=== PATIENT | male | born 1955 | race Caucasian/White ===

== ENCOUNTER 2016-06-23 03:23 | Inpatient (IN) | payer MEDICARE ==
[~2016-06-23] VITALS: Ht 188 cm; Wt 115.0 kg
[~2016-06-23 03:23] MED LIST: AMOX1TAB61 PO; FENO43CA3 PO; GABA800T2 PO; GLIM1TAB2 PO; INSU100C SQ-INSULIN; INSU100V8 SQ; LORA1TAB PO; OXYC15TA PO; OXYC20TA42 PO; OXYC5CAP4 PO; QUET300T5 PO; SIMV10TA3 PO; TRAM50TA2 PO; TRAZ100T15 PO; ZOLP-413 PO
[2016-06-23] MEDS ORDERED: ONDANSETRON 2MG/ML, 2ML ONE (04:15)
[2016-06-23] MEDS ORDERED: SODIUM CHLORIDE 0.9% 1,000ML IVBOLUS ONE (04:30)
[2016-06-23] MEDS ORDERED: ONDANSETRON 2MG/ML, 2ML IVPush ONE (04:30)
[2016-06-23] MEDS ORDERED: SODIUM CHLORIDE FLUSH 10ML SYR IVF ONE (04:30)
[2016-06-23] MEDS ORDERED: LORazepam 2 MG/ML, 1ML ONE ×2 (05:09→06:44)
[2016-06-23 05:21] LABS: BLOOD UREA NITROGEN 20 mg/dL (7-18)
[2016-06-23 05:29] LABS: ASPARTATE AMINO TRANSFERASE 14 U/L (15-37)
[2016-06-23 05:30] LABS: ACETAMINOPHEN < 2 mcg/mL (10-30)
[2016-06-23] MEDS ORDERED: LORazepam 2 MG/ML, 1ML IVPush ONE ×2 (05:30→06:30)
[2016-06-23] MEDS ORDERED: ZIPRASIDONE 20 MG INJ IM ONE ×2 (05:54→06:00)
[2016-06-23 06:03] LABS: DAU SCREEN DISCLAIMER
[2016-06-23 06:29] LABS: PATH.CAST-FLAG NOT PRESENT; SPERM-FLAG NOT PRESENT; SRC-FLAG NOT PRESENT; XTAL-FLAG NOT PRESENT; YLC-FLAG NOT PRESENT
[2016-06-23] MEDS ORDERED: OMNIPAQUE 350 MG/ML, 100ML BOTTLE ONE (07:03)
[2016-06-23] MEDS ORDERED: CEFTRIAXONE PMX 1GM/50ML 50 ML IV ONE (07:30)
[2016-06-23] MEDS ORDERED: CEFTRIAXONE PMX 1GM/50ML 50 ML ONE (07:37)
[2016-06-23 09:35] VITALS: BP 133/77
[2016-06-23] MEDS ORDERED: ACETAMINOPHEN 325 MG TABLET PO PRN (11:00)
[2016-06-23] MEDS ORDERED: DOCUSATE 100 MG CAPSULE PO PRN (11:00)
[2016-06-23] MEDS ORDERED: LABETALOL 5MG/ML, 20ML IV PRN (11:00)
[2016-06-23] MEDS ORDERED: ONDANSETRON 2MG/ML, 2ML IVP PRN (11:00)
[2016-06-23] MEDS ORDERED: GUAIFENESIN/DM 200-20MG, 10ML UDC PO PRN (11:00)
[2016-06-23 11:10] VITALS: BP 133/77
[2016-06-23] MEDS: ENOXAPARIN 40 MG/0.4 ML SQ SCH (11:31)
[2016-06-23] MEDS: GABAPENTIN 400 MG CAPSULE PO SCH ×3 (11:31→21:02)
[2016-06-23] MEDS: HYDROcodone/APAP 5/325 TABLET PO PRN (11:32)
[2016-06-23] MEDS: SODIUM CHLORIDE 0.9% 1,000 ML IV SCH ×2 (11:41→21:03)
[2016-06-23] MEDS ORDERED: QUET1TAB PO (12:10)
[2016-06-23 12:44] VITALS: BP 133/81
[2016-06-23] MEDS: QUETIAPINE 100MG TABLET PO SCH ×2 (15:04→21:02)
[2016-06-23] MEDS: ALPRazolam 1MG TABLET PO PRN (15:53)
[2016-06-23] MEDS ORDERED: INSULIN DETEMIR 100 UNITS/ML, PEN SQ-INSULIN SCH (17:00)
[2016-06-23] MEDS: INSULIN ASPART 100 UNITS/ML, PEN SQ-INSULIN SCH ×2 (18:01→21:02)
[2016-06-23] MEDS: OxyconTIN ER 20 MG TAB.ER PO SCH (21:10)
[2016-06-23 21:15] VITALS: BP 100/63
[2016-06-24 03:57] VITALS: BP 106/72
[2016-06-24] MEDS: HYDROcodone/APAP 5/325 TABLET PO PRN ×3 (04:46→16:45)
[2016-06-24] MEDS: QUETIAPINE 100MG TABLET PO SCH ×4 (05:02→22:07)
[2016-06-24] MEDS: GABAPENTIN 400 MG CAPSULE PO SCH ×4 (05:02→22:07)
[2016-06-24 05:33] VITALS: BP 128/56
[2016-06-24] MEDS: ALPRazolam 1MG TABLET PO PRN ×2 (05:36→16:45)
[2016-06-24 05:54] LABS: HEMOGLOBIN 12.8 g/dL (13.7-18.0)
[2016-06-24 06:18] LABS: BLOOD UREA NITROGEN 17 mg/dL (7-18)
[2016-06-24 08:18] VITALS: BP 115/70
[2016-06-24] MEDS: INSULIN ASPART 100 UNITS/ML, PEN SQ-INSULIN SCH ×4 (10:18→22:06)
[2016-06-24] MEDS: OxyconTIN ER 20 MG TAB.ER PO SCH ×2 (10:34→22:06)
[2016-06-24] MEDS: CEFTRIAXONE PMX 2GM/50ML 50 ML IV SCH (11:50)
[2016-06-24] MEDS: ENOXAPARIN 40 MG/0.4 ML SQ SCH (11:51)
[2016-06-24 14:00] VITALS: BP 118/75
[2016-06-24] MEDS: INSULIN DETEMIR 100 UNITS/ML, PEN SQ-INSULIN SCH (16:40)
[2016-06-24] MEDS ORDERED: INSULIN DETEMIR 100 UNITS/ML, PEN SQ-INSULIN SCH (17:00)
[2016-06-24 20:12] VITALS: BP 137/72
[2016-06-25] MEDS: ALPRazolam 1MG TABLET PO PRN ×2 (00:21→10:57)
[2016-06-25 00:23] VITALS: BP 159/70
[2016-06-25] MEDS: HYDROcodone/APAP 5/325 TABLET PO PRN (04:43)
[2016-06-25 05:20] LABS: HEMOGLOBIN 12.2 g/dL (13.7-18.0)
[2016-06-25 05:32] LABS: BLOOD UREA NITROGEN 16 mg/dL (7-18)
[2016-06-25] MEDS: GABAPENTIN 400 MG CAPSULE PO SCH ×4 (05:45→20:33)
[2016-06-25] MEDS: QUETIAPINE 100MG TABLET PO SCH ×4 (05:46→20:33)
[2016-06-25 07:43] VITALS: BP 111/70
[2016-06-25] MEDS: INSULIN ASPART 100 UNITS/ML, PEN SQ-INSULIN SCH ×4 (08:52→20:37)
[2016-06-25] MEDS: OxyconTIN ER 20 MG TAB.ER PO SCH ×2 (09:20→20:32)
[2016-06-25] MEDS: ENOXAPARIN 40 MG/0.4 ML SQ SCH (10:59)
[2016-06-25] MEDS: CEFTRIAXONE PMX 2GM/50ML 50 ML IV SCH (11:33)
[2016-06-25 13:25] VITALS: BP 135/76
[2016-06-25] MEDS: INSULIN DETEMIR 100 UNITS/ML, PEN SQ-INSULIN SCH (15:50)
[2016-06-25 19:06] VITALS: BP 146/84
[2016-06-26 02:37] VITALS: BP 124/74
[2016-06-26] MEDS: QUETIAPINE 100MG TABLET PO SCH ×2 (05:48→11:34)
[2016-06-26] MEDS: GABAPENTIN 400 MG CAPSULE PO SCH ×2 (05:49→11:34)
[2016-06-26 07:30] VITALS: BP 156/81
[2016-06-26] MEDS: INSULIN ASPART 100 UNITS/ML, PEN SQ-INSULIN SCH ×2 (08:07→11:33)
[2016-06-26] MEDS: OxyconTIN ER 20 MG TAB.ER PO SCH (08:07)
[2016-06-26] MEDS: ENOXAPARIN 40 MG/0.4 ML SQ SCH (11:33)
[2016-06-26] MEDS: CEFTRIAXONE PMX 2GM/50ML 50 ML IV SCH (11:33)
[2016-06-26] MEDS: HYDROcodone/APAP 5/325 TABLET PO PRN (11:41)
[2016-06-26] MEDS: ALPRazolam 1MG TABLET PO PRN (11:42)
[2016-06-26] MEDS ORDERED: LEVO500T33 PO (13:07)
[2016-06-26 14:00] VITALS: BP 153/78
== END 2016-06-26 16:05 | DRG 690 ==
LOC: ED 03:40 → EDIP 07:31 → 4EST 09:24 → 3NE 06-24 13:10
PROVIDERS: ADMIT Hospitalist; ATTEND Hospitalist
PROC: 0T9B70Z Drainage of Bladder with Drainage Device, Via Natural or Artificial Opening (ICD-10-PCS; principal; 2016-06-23)
DX: N39.0 Urinary tract infection, site not specified (principal); K92.2 Gastrointestinal hemorrhage, unspecified; E11.42 Type 2 diabetes mellitus with diabetic polyneuropathy; E78.5 Hyperlipidemia, unspecified; F31.9 Bipolar disorder, unspecified; F41.0 Panic disorder [episodic paroxysmal anxiety]; F41.1 Generalized anxiety disorder; I10 Essential (primary) hypertension; R09.02 Hypoxemia; G89.29 Other chronic pain; F10.10 Alcohol abuse, uncomplicated; N20.0 Calculus of kidney; Z79.4 Long term (current) use of insulin; Z86.711 Personal history of pulmonary embolism; Z86.718 Personal history of other venous thrombosis and embolism; Z90.89 Acquired absence of other organs; N10 Acute pyelonephritis; Z80.1 Family history of malignant neoplasm of trachea, bronchus and lung; E66.9 Obesity, unspecified; Z68.32 Body mass index [BMI] 32.0-32.9, adult; R41.82 Altered mental status, unspecified; T43.205A Adverse effect of unspecified antidepressants, initial encounter; T43.505A Adverse effect of unspecified antipsychotics and neuroleptics, initial encounter
CPT/HCPCS: 36415; 74177; 80048; 80053; 80307; 80329; 81001; 82140; 82550; 82962; 83605; 83690; 83735; 84145; 84443; 85025; 87040; 87086; 93005; 96365; 96375; 96376; J0696; J1650; J1815; J2405; J3486; Q9967; G0480; J2060; J7030

== ENCOUNTER 2016-07-23 16:07 | Emergency (ER) | payer MEDICARE ==
[~2016-07-23] VITALS: Ht 180.3 cm; Wt 104.2 kg
[~2016-07-23 16:07] MED LIST changes: +LEVO500T33 PO; +QUET1TAB PO
[2016-07-23] MEDS ORDERED: ONDANSETRON ODT 8 MG ONE (17:55)
[2016-07-23 17:58] VITALS: BP 159/83
[2016-07-23] MEDS ORDERED: ONDANSETRON ODT 8 MG PO ONE (18:00)
== END 2016-07-23 18:00 | disposition home or self-care (01) ==
LOC: ED 16:30
DX: R11.2 Nausea with vomiting, unspecified (principal); E11.9 Type 2 diabetes mellitus without complications
CPT/HCPCS: 70360; 71010; 99284; Q0162

== ENCOUNTER 2016-12-08 03:18 | Emergency (ER) | payer MEDICARE ==
[~2016-12-08] VITALS: Ht 188 cm; Wt 113.3 kg
[~2016-12-08 03:18] MED LIST changes: -LEVO500T33 PO; +LEVO500T47 PO; +OXYC5CAP2 PO; -OXYC5CAP4 PO
[2016-12-08 03:27] VITALS: BP 125/77
== END 2016-12-08 04:38 | disposition left against medical advice (07) ==
LOC: ED 04:32
DX: Z53.21 Procedure and treatment not carried out due to patient leaving prior to being seen by health care provider (principal)

== ENCOUNTER 2016-12-17 21:40 | Emergency (ER) | payer MEDICARE ==
[~2016-12-17] VITALS: Ht 188 cm; Wt 105.0 kg
[2016-12-17 21:46] VITALS: BP 158/78
[2016-12-17] MEDS ORDERED: FENO48TA16 PO (21:50)
== END 2016-12-17 21:59 | disposition home or self-care (01) ==
LOC: ED 21:50
DX: Z76.0 Encounter for issue of repeat prescription (principal); E11.9 Type 2 diabetes mellitus without complications; F31.9 Bipolar disorder, unspecified; F41.9 Anxiety disorder, unspecified; G89.29 Other chronic pain; J45.909 Unspecified asthma, uncomplicated; I25.10 Atherosclerotic heart disease of native coronary artery without angina pectoris; I11.0 Hypertensive heart disease with heart failure; I50.9 Heart failure, unspecified
CPT/HCPCS: 99283

== ENCOUNTER 2017-02-24 22:10 | Emergency (ER) | payer MEDICARE ==
[~2017-02-24] VITALS: Ht 188 cm; Wt 118.4 kg
[~2017-02-24 22:10] MED LIST changes: +FENO48TA16 PO
[2017-02-24 22:13] VITALS: BP 133/78
== END 2017-02-24 23:56 | disposition home or self-care (01) ==
LOC: ED 23:40
DX: Z76.0 Encounter for issue of repeat prescription (principal); G47.00 Insomnia, unspecified; I11.0 Hypertensive heart disease with heart failure; I50.9 Heart failure, unspecified; J45.909 Unspecified asthma, uncomplicated; I25.10 Atherosclerotic heart disease of native coronary artery without angina pectoris; Z86.711 Personal history of pulmonary embolism
CPT/HCPCS: 99283

== ENCOUNTER 2017-04-07 07:32 | Emergency (ER) | payer MEDICARE ==
[~2017-04-07] VITALS: Ht 188 cm; Wt 117.3 kg
[2017-04-07 07:35] VITALS: BP 161/81
[2017-04-07 08:56] LABS: MICROSCOPIC INDICATED
[2017-04-07 09:19] LABS: CULTURE INDICATED? YES
== END 2017-04-07 08:53 | disposition left against medical advice (07) ==
LOC: ED 08:05
DX: R33.9 Retention of urine, unspecified (principal); N40.0 Benign prostatic hyperplasia without lower urinary tract symptoms; E11.9 Type 2 diabetes mellitus without complications; I11.0 Hypertensive heart disease with heart failure; I50.9 Heart failure, unspecified; I25.10 Atherosclerotic heart disease of native coronary artery without angina pectoris; Z86.711 Personal history of pulmonary embolism; J45.909 Unspecified asthma, uncomplicated
CPT/HCPCS: 81001; 87077; 87086; 87186; 99284

== ENCOUNTER 2017-08-09 03:18 | Emergency (ER) | payer MEDICARE ==
[~2017-08-09] VITALS: Ht 188 cm; Wt 116.8 kg
[2017-08-09 03:20] VITALS: BP 167/91
== END 2017-08-09 04:07 | disposition left against medical advice (07) ==
LOC: ED 03:38
DX: F41.1 Generalized anxiety disorder (principal); F20.9 Schizophrenia, unspecified; F31.9 Bipolar disorder, unspecified; I25.10 Atherosclerotic heart disease of native coronary artery without angina pectoris; E11.9 Type 2 diabetes mellitus without complications
CPT/HCPCS: 99284

== ENCOUNTER 2017-08-09 13:35 | Emergency (ER) | payer MEDICARE ==
[~2017-08-09] VITALS: Ht 188 cm; Wt 115.0 kg
[2017-08-09 13:38] VITALS: BP 170/94
== END 2017-08-09 15:34 | disposition left against medical advice (07) ==
LOC: ED 15:28
DX: R10.9 Unspecified abdominal pain (principal); Z53.21 Procedure and treatment not carried out due to patient leaving prior to being seen by health care provider

== ENCOUNTER 2017-08-31 22:37 | Emergency (ER) | payer MEDICARE ==
[~2017-08-31] VITALS: Ht 188 cm; Wt 118.0 kg
[2017-08-31] MEDS ORDERED: MAALOX/HYOSCYAMINE/LIDOCAINE 45 ML BTL ONE (22:59)
[2017-08-31] MEDS ORDERED: MAALOX/HYOSCYAMINE/LIDOCAINE 45 ML BTL PO ONE (23:00)
[2017-08-31 23:25] VITALS: BP 178/88
== END 2017-09-01 00:03 | disposition left against medical advice (07) ==
LOC: ED 23:02
DX: Z53.21 Procedure and treatment not carried out due to patient leaving prior to being seen by health care provider (principal); R10.30 Lower abdominal pain, unspecified
CPT/HCPCS: 93005

== ENCOUNTER 2017-09-13 02:50 | Emergency (ER) | payer MEDICARE ==
[~2017-09-13] VITALS: Ht 188 cm; Wt 110.0 kg
[2017-09-13 02:53] VITALS: BP 150/82
[2017-09-13] MEDS ORDERED: ZIPRASIDONE 20 MG INJ IM ONE ×2 (03:25→03:30)
[2017-09-13 03:29] LABS: BASOPHILS # (AUTO) 0.02 x10^3/uL (0-0.1); BASOPHILS % (AUTO) 0 % (0-1); EOSINOPHILS # (AUTO) 0.03 x10^3/uL (0-0.4); EOSINOPHILS % (AUTO) 0 % (1-7); LYMPHOCYTES # (AUTO) 1.18 x10^3/uL (1-3.4); LYMPHOCYTES % (AUTO) 18 % (22-44); MD NO; MEAN CORPUSCULAR HEMOGLOBIN 31.7 pg (27.5-34.5); MEAN CORPUSCULAR HGB CONC 34.2 g/dL (33.2-36.2); MEAN CORPUSCULAR VOLUME 92.8 fL (81-97); MEAN PLATELET VOLUME 7.7 fL (7.4-10.4); MONOCYTES # (AUTO) 0.45 x10^3/uL (0.2-0.8); MONOCYTES % (AUTO) 7 % (2-9); NEUTROPHILS # (AUTO) 4.83 x10^3/uL (1.8-6.8); NEUTROPHILS % (AUTO) 74 % (42-75); PLATELET COUNT 243 x10^3/uL (130-400); RED BLOOD COUNT 4.94 x10^6/uL (4.38-5.82); RED CELL DISTRIBUTION WIDTH 13.8 % (9.4-14.8)
[2017-09-13] MEDS ORDERED: MAALOX/HYOSCYAMINE/LIDOCAINE 45 ML BTL ONE (03:33)
[2017-09-13 03:40] LABS: ANION GAP 12 mmol/L (5-15); CALCIUM 9.5 mg/dL (8.5-10.1); CHLORIDE 97 mmol/L (98-107); CREATININE 1.16 mg/dL (0.7-1.3)
[2017-09-13 03:41] LABS: ALANINE AMINOTRANSFERASE 59 U/L (12-78); ALBUMIN 3.3 g/dL (3.4-5.0); SALICYLATE LEVEL 1.8 mg/dL (2.8-20.0)
[2017-09-13 03:44] LABS: ALKALINE PHOSPHATASE 176 U/L (45-117); BILIRUBIN,TOTAL 0.2 mg/dL (0.2-1.0); TOTAL PROTEIN 7.2 g/dL (6.4-8.2)
[2017-09-13 03:45] LABS: ACETAMINOPHEN < 2 mcg/mL (10-30)
[2017-09-13] MEDS ORDERED: MAALOX/HYOSCYAMINE/LIDOCAINE 45 ML BTL PO ONE (04:00)
[2017-09-13] MEDS ORDERED: SODIUM CHLORIDE FLUSH 10ML SYR IVF ONE (04:30)
[2017-09-13] MEDS ORDERED: SODIUM CHLORIDE 0.9% 1,000ML IVBOLUS ONE (04:30)
== END 2017-09-13 06:18 | disposition home or self-care (01) ==
LOC: ED 03:09
DX: R10.84 Generalized abdominal pain (principal); R45.851 Suicidal ideations; E11.65 Type 2 diabetes mellitus with hyperglycemia; E11.40 Type 2 diabetes mellitus with diabetic neuropathy, unspecified; I50.9 Heart failure, unspecified; I25.10 Atherosclerotic heart disease of native coronary artery without angina pectoris; F31.9 Bipolar disorder, unspecified; Z86.711 Personal history of pulmonary embolism; Z91.19 Patient's noncompliance with other medical treatment and regimen
CPT/HCPCS: 36415; 80053; 80307; 80329; 83690; 85025; 93005; 96360; 96372; 99285; J3486; J7030; G0480

== ENCOUNTER 2017-10-08 21:38 | Emergency (ER) | payer MEDICARE ==
[~2017-10-08] VITALS: Ht 185.4 cm; Wt 106.8 kg
[2017-10-08 22:29] LABS: BASOPHILS # (AUTO) 0.01 x10^3/uL (0-0.1); BASOPHILS % (AUTO) 0 % (0-1); EOSINOPHILS # (AUTO) 0.03 x10^3/uL (0-0.4); EOSINOPHILS % (AUTO) 1 % (1-7); LYMPHOCYTES # (AUTO) 1.03 x10^3/uL (1-3.4); LYMPHOCYTES % (AUTO) 16 % (22-44); MD NO; MEAN CORPUSCULAR HEMOGLOBIN 31.1 pg (27.5-34.5); MEAN CORPUSCULAR HGB CONC 33.5 g/dL (33.2-36.2); MEAN CORPUSCULAR VOLUME 92.7 fL (81-97); MEAN PLATELET VOLUME 8.7 fL (7.4-10.4); MONOCYTES # (AUTO) 0.68 x10^3/uL (0.2-0.8); MONOCYTES % (AUTO) 11 % (2-9); NEUTROPHILS # (AUTO) 4.61 x10^3/uL (1.8-6.8); NEUTROPHILS % (AUTO) 73 % (42-75); PLATELET COUNT 204 x10^3/uL (130-400); RED BLOOD COUNT 4.59 x10^6/uL (4.38-5.82); RED CELL DISTRIBUTION WIDTH 13.8 % (9.4-14.8)
[2017-10-08 22:39] LABS: ALANINE AMINOTRANSFERASE 237 U/L (12-78); ALBUMIN 3.2 g/dL (3.4-5.0); ANION GAP 11 mmol/L (5-15); CALCIUM 9.2 mg/dL (8.5-10.1); CHLORIDE 99 mmol/L (98-107); CREATININE 0.95 mg/dL (0.7-1.3)
[2017-10-08 22:41] LABS: SALICYLATE LEVEL < 1.7 mg/dL (2.8-20.0)
[2017-10-08 22:42] LABS: ACETAMINOPHEN 20 mcg/mL (10-30); ALKALINE PHOSPHATASE 208 U/L (45-117); BILIRUBIN,TOTAL 0.4 mg/dL (0.2-1.0)
[2017-10-08 22:56] VITALS: BP 146/78
[2017-10-08] MEDS ORDERED: MAALOX/HYOSCYAMINE/LIDOCAINE 45 ML BTL ONE (23:10)
[2017-10-08] MEDS ORDERED: MAALOX/HYOSCYAMINE/LIDOCAINE 45 ML BTL PO ONE (23:30)
== END 2017-10-08 23:14 | disposition home or self-care (01) ==
LOC: ED 21:53
DX: F15.10 Other stimulant abuse, uncomplicated (principal); F11.10 Opioid abuse, uncomplicated; Z72.9 Problem related to lifestyle, unspecified; Z60.9 Problem related to social environment, unspecified; Z79.899 Other long term (current) drug therapy
CPT/HCPCS: 36415; 70450; 71045; 80053; 80307; 80329; 82140; 85025; 93005; 99285; G0480

== ENCOUNTER 2017-10-11 14:15 | Inpatient (IN) | payer MEDICARE ==
[~2017-10-11] VITALS: Ht 185.4 cm; Wt 120.0 kg
[2017-10-11] MEDS ORDERED: SODIUM CHLORIDE FLUSH 10ML SYR IVF ONE (14:30)
[2017-10-11] MEDS ORDERED: SODIUM CHLORIDE 0.9% 1,000ML IVBOLUS ONE ×2 (14:30→15:30)
[2017-10-11] MEDS ORDERED: MORPHINE SULFATE 4 MG/ML, 1ML ONE ×2 (14:52→15:07)
[2017-10-11] MEDS ORDERED: ONDANSETRON 2MG/ML, 2ML ONE (14:52)
[2017-10-11] MEDS ORDERED: LORazepam 2 MG/ML, 1ML ONE (14:53)
[2017-10-11] MEDS ORDERED: ONDANSETRON 2MG/ML, 2ML IVPush ONE (15:00)
[2017-10-11] MEDS: MORPHINE SULFATE 4 MG/ML, 1ML IVPush PRN ×2 (15:00→15:16)
[2017-10-11] MEDS: LORazepam 2 MG/ML, 1ML IVPush PRN ×2 (15:00→16:08)
[2017-10-11 15:08] LABS: ALBUMIN 3.1 g/dL (3.4-5.0); ANION GAP 18 mmol/L (5-15); CHLORIDE 89 mmol/L (98-107); CREATININE 1.35 mg/dL (0.7-1.3)
[2017-10-11 15:13] LABS: BASOPHILS # (AUTO) 0.01 x10^3/uL (0-0.1); BASOPHILS % (AUTO) 0 % (0-1); EOSINOPHILS % (AUTO) 0 % (1-7); LYMPHOCYTES # (AUTO) 1.05 x10^3/uL (1-3.4); LYMPHOCYTES % (AUTO) 7 % (22-44); MD NO; MEAN CORPUSCULAR HEMOGLOBIN 31.1 pg (27.5-34.5); MEAN CORPUSCULAR VOLUME 91.3 fL (81-97); MEAN PLATELET VOLUME 9.1 fL (7.4-10.4); MONOCYTES # (AUTO) 1.42 x10^3/uL (0.2-0.8); MONOCYTES % (AUTO) 10 % (2-9); NEUTROPHILS # (AUTO) 12.44 x10^3/uL (1.8-6.8); NEUTROPHILS % (AUTO) 83 % (42-75); PLATELET COUNT 295 x10^3/uL (130-400); RED BLOOD COUNT 3.68 x10^6/uL (4.38-5.82); RED CELL DISTRIBUTION WIDTH 13.7 % (9.4-14.8)
[2017-10-11 15:40] LABS: ACETONE, SERUM Small (20mg/dL) mg/dL (Negative)
[2017-10-11] MEDS ORDERED: HYDROmorphone 2 MG/ML, 1ML ONE (15:40)
[2017-10-11 15:46] LABS: PROTHROMBIN TIME 10.4 Seconds (9.6-11.5)
[2017-10-11 15:52] LABS: FIO2 RA %; PH, VENOUS 7.544 pH (7.320-7.420)
[2017-10-11] MEDS ORDERED: OMNIPAQUE 350 MG/ML, 100ML BOTTLE ONE (15:53)
[2017-10-11] MEDS ORDERED: HYDROmorphone 2 MG/ML, 1ML IVPush PRN (16:00)
[2017-10-11] MEDS ORDERED: SODIUM CHLORIDE 0.9% 1,000 ML IV ONE (17:20)
[2017-10-11] MEDS ORDERED: SODIUM CHLORIDE FLUSH 10ML SYR IVF PRN (17:30)
[2017-10-11] MEDS ORDERED: OXYC5CAP2 PO (18:12)
[2017-10-11 18:40] LABS: MICROSCOPIC AUTO
[2017-10-11 18:45] LABS: CULTURE INDICATED? NO
[2017-10-11] MEDS ORDERED: BISACODYL 10 MG SUPP PR PRN (19:00)
[2017-10-11] MEDS ORDERED: hydrALAzine 20 MG/ML, 1ML IVPush PRN (19:00)
[2017-10-11] MEDS ORDERED: POLYETHYLENE GLYCOL 17 GM PACKET PO PRN (19:00)
[2017-10-11] MEDS ORDERED: DOCUSATE 100 MG CAPSULE PO PRN (19:00)
[2017-10-11] MEDS ORDERED: ONDANSETRON ODT 4 MG PO PRN (19:00)
[2017-10-11] MEDS: morphine SULFATE 10 MG/ML, 1ML IVPush PRN ×4 (19:02→19:54)
[2017-10-11] MEDS: SODIUM CHLORIDE 0.9% 1,000 ML IV SCH (19:04)
[2017-10-11] MEDS: PROMETHAZINE 25 MG/ML, 1ML IM PRN (19:33)
[2017-10-11 19:43] LABS: FREE T4 (FREE THYROXINE) 1.31 ng/dL (0.76-1.46)
[2017-10-11 19:47] LABS: THYROID STIMULATING HORMONE 0.447 mIU/L (0.358-3.740)
[2017-10-11 19:56] VITALS: BP 161/78
[2017-10-11 20:10] LABS: HEMOGLOBIN A1C 10.6 % (4.2-6.3)
[2017-10-11] MEDS: INSULIN LISPRO 100 UNITS/ML, PEN SQ-INSULIN SCH (21:39)
[2017-10-11] MEDS: OXYcodone IR 5MG TABLET PO PRN (22:21)
[2017-10-11] MEDS ORDERED: QUETIAPINE 100MG TABLET PO SCH (22:30)
[2017-10-12] MEDS: ONDANSETRON 2MG/ML, 2ML IVPush PRN ×2 (00:03→20:43)
[2017-10-12] MEDS: morphine SULFATE 10 MG/ML, 1ML IVPush PRN ×6 (00:03→23:53)
[2017-10-12 00:54] VITALS: BP 115/81
[2017-10-12] MEDS: SODIUM CHLORIDE 0.9% 1,000 ML IV SCH (02:00)
[2017-10-12] MEDS ORDERED: CALCIUM CARBONATE 500 MG TAB.CHEW ONE (03:54)
[2017-10-12 04:39] LABS: BASOPHILS # (AUTO) 0.01 x10^3/uL (0-0.1); BASOPHILS % (AUTO) 0 % (0-1); EOSINOPHILS % (AUTO) 0 % (1-7); LYMPHOCYTES % (AUTO) 7 % (22-44); MD NO; MEAN CORPUSCULAR HEMOGLOBIN 30.9 pg (27.5-34.5); MEAN CORPUSCULAR HGB CONC 33.4 g/dL (33.2-36.2); MEAN CORPUSCULAR VOLUME 92.6 fL (81-97); MEAN PLATELET VOLUME 9.2 fL (7.4-10.4); MONOCYTES # (AUTO) 1.13 x10^3/uL (0.2-0.8); MONOCYTES % (AUTO) 9 % (2-9); NEUTROPHILS # (AUTO) 10.57 x10^3/uL (1.8-6.8); NEUTROPHILS % (AUTO) 84 % (42-75); PLATELET COUNT 237 x10^3/uL (130-400); RED BLOOD COUNT 3.65 x10^6/uL (4.38-5.82); RED CELL DISTRIBUTION WIDTH 13.9 % (9.4-14.8)
[2017-10-12 04:52] LABS: ALBUMIN 2.9 g/dL (3.4-5.0); ANION GAP 12 mmol/L (5-15); CALCIUM 8.1 mg/dL (8.5-10.1); CHLORIDE 95 mmol/L (98-107)
[2017-10-12 04:58] LABS: ALANINE AMINOTRANSFERASE 103 U/L (12-78); ALKALINE PHOSPHATASE 163 U/L (45-117); BILIRUBIN,TOTAL 0.9 mg/dL (0.2-1.0); CHOL/HDL RATIO 1.6; CHOLESTEROL, TOTAL 115 mg/dL (140-239); CREATININE 0.97 mg/dL (0.7-1.3); HDL CHOL % 63 % (26-37); HDL CHOLESTEROL (DIRECT) 72 mg/dL (40-60); LDL CHOLESTEROL,CALCULATED 22 mg/dL (54-169); LDL/HDL RATIO 0.3 (0.5-3.0); TOTAL PROTEIN 6.1 g/dL (6.4-8.2); TRIGLYCERIDES 107 mg/dL (50-200); VLDL CHOLESTEROL 21 mg/dL (0-25)
[2017-10-12] MEDS: PROMETHAZINE 25 MG/ML, 1ML IM PRN (05:32)
[2017-10-12] MEDS: OXYcodone IR 5MG TABLET PO PRN ×3 (07:10→22:43)
[2017-10-12] MEDS: INSULIN LISPRO 100 UNITS/ML, PEN SQ-INSULIN SCH ×4 (09:08→20:43)
[2017-10-12] MEDS: CALCIUM CARBONATE 500 MG TAB.CHEW PO PRN ×2 (09:08→20:33)
[2017-10-12 09:59] VITALS: BP 129/73
[2017-10-12] MEDS ORDERED: INSULIN GLARGINE 100 UNITS/ML, PEN SQ-INSULIN ONE (10:00)
[2017-10-12 13:31] VITALS: BP 124/59
[2017-10-12] MEDS ORDERED: INSULIN GLARGINE 100 UNITS/ML, PEN SQ-INSULIN SCH ×2 (14:30→21:00)
[2017-10-12 18:38] VITALS: BP 99/64
[2017-10-12] MEDS: DIPHENHYDRAMINE 50 MG CAPSULE PO SCH (20:32)
[2017-10-12] MEDS: QUETIAPINE 100MG TABLET PO SCH (20:33)
[2017-10-13 01:42] VITALS: BP 150/73
[2017-10-13] MEDS: ACETAMINOPHEN 325 MG TABLET PO PRN ×2 (01:52→19:53)
[2017-10-13] MEDS: morphine SULFATE 10 MG/ML, 1ML IVPush PRN ×6 (03:04→23:47)
[2017-10-13] MEDS: CALCIUM CARBONATE 500 MG TAB.CHEW PO PRN ×2 (04:08→19:12)
[2017-10-13] MEDS: OXYcodone IR 5MG TABLET PO PRN ×4 (04:08→18:29)
[2017-10-13 05:03] LABS: ALANINE AMINOTRANSFERASE 113 U/L (12-78); ALBUMIN 2.2 g/dL (3.4-5.0); ALKALINE PHOSPHATASE 398 U/L (45-117); ANION GAP 8 mmol/L (5-15); BILIRUBIN,TOTAL 0.6 mg/dL (0.2-1.0); CALCIUM 7.7 mg/dL (8.5-10.1); CHLORIDE 100 mmol/L (98-107); CREATININE 0.92 mg/dL (0.7-1.3); TOTAL PROTEIN 5.2 g/dL (6.4-8.2)
[2017-10-13] MEDS: ONDANSETRON 2MG/ML, 2ML IVPush PRN (06:17)
[2017-10-13] MEDS: QUETIAPINE 100MG TABLET PO SCH ×2 (07:48→19:35)
[2017-10-13] MEDS: INSULIN LISPRO 100 UNITS/ML, PEN SQ-INSULIN SCH ×4 (07:48→19:52)
[2017-10-13 07:58] VITALS: BP 148/70
[2017-10-13 12:35] VITALS: BP 114/55
[2017-10-13] MEDS: DIPHENHYDRAMINE 50 MG CAPSULE PO SCH (19:35)
[2017-10-13] MEDS ORDERED: INSULIN GLARGINE 100 UNITS/ML, PEN SQ-INSULIN SCH (21:00)
[2017-10-13 22:01] VITALS: BP 114/71
[2017-10-14] MEDS: OXYcodone IR 5MG TABLET PO PRN (00:18)
== END 2017-10-14 00:45 | disposition left against medical advice (07) | DRG 729 ==
LOC: ED 17:19 → EDIP 17:20 → ED 17:26 → 3NE 18:40
PROVIDERS: ADMIT Internal Medicine; ATTEND Internal Medicine
DX: S30.22XA Contusion of scrotum and testes, initial encounter (principal); N17.0 Acute kidney failure with tubular necrosis; E87.1 Hypo-osmolality and hyponatremia; E87.2 Acidosis; E11.65 Type 2 diabetes mellitus with hyperglycemia; W18.2XXA Fall in (into) shower or empty bathtub, initial encounter; D64.9 Anemia, unspecified; E66.9 Obesity, unspecified; Z68.34 Body mass index [BMI] 34.0-34.9, adult; Z53.21 Procedure and treatment not carried out due to patient leaving prior to being seen by health care provider; E78.1 Pure hyperglyceridemia; E78.5 Hyperlipidemia, unspecified; F31.9 Bipolar disorder, unspecified; F41.0 Panic disorder [episodic paroxysmal anxiety]; F41.1 Generalized anxiety disorder; F51.04 Psychophysiologic insomnia; E11.42 Type 2 diabetes mellitus with diabetic polyneuropathy; G89.29 Other chronic pain; I11.0 Hypertensive heart disease with heart failure; I25.10 Atherosclerotic heart disease of native coronary artery without angina pectoris; I50.9 Heart failure, unspecified; J45.909 Unspecified asthma, uncomplicated; K76.0 Fatty (change of) liver, not elsewhere classified; N20.0 Calculus of kidney; Y93.E1 Activity, personal bathing and showering; Z86.711 Personal history of pulmonary embolism; Z86.718 Personal history of other venous thrombosis and embolism; Z93.0 Tracheostomy status; Y92.89 Other specified places as the place of occurrence of the external cause
CPT/HCPCS: 36415; 74177; 76870; 80048; 80053; 80061; 81001; 82010; 82040; 82803; 82962; 83036; 83735; 84439; 84443; 85025; 85610; 85730; 86705; 86706; 86709; 86803; 87340; 96361; 96374; 96375; 96376; J1170; J2405; J2550; Q9967; J1815; J2060; J2270; J7030; Q0177